=== PATIENT | male | born 1985 | race Two or more races ===

== ENCOUNTER 2020-04-19 07:53 | Emergency (ER) | payer OTHER, MEDICAID ==
[~2020-04-19] VITALS: Ht 165.1 cm; Wt 56.7 kg
[2020-04-19 08:10] VITALS: BP 132/74
--- NOTE | 2020-04-19 08:15 | Emergency Room Report ---
History of Present Illness General Chief Complaint: Flu Like Symptoms Source: Patient Present Illness HPI 34-year-old male no past medical history presents with subjective fever/chills, body aches, cough, congestion, no aggravating relieving factors severity is moderate, constant no chest pain no shortness of breath. 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 Patient History Past Medical History: see triage record Reviewed Nursing Documentation: PMH: Agreed; PSxH: Agreed Review of Systems All Other Systems: negative except mentioned in HPI Physical Exam Vital Signs Date Time Temp Pulse Resp B/P (MAP) Pulse Ox O2 Delivery O2 Flow Rate FiO2 04/19/20 08:04 99.0 95 20 132/74 (93) 95 Room Air Sp02 EP Interpretation: reviewed, normal General Appearance: well appearing, no apparent distress, alert Head: normocephalic, atraumatic Eyes: bilateral eye PERRL, bilateral eye EOMI ENT: uvula midline, moist mucus membranes, nasal congestion Neck: supple, thyroid normal, supple/symm/no masses Respiratory: lungs clear, no respiratory distress, no retraction, no accessory muscle use Cardiovascular #1: normal peripheral pulses, regular rate, rhythm, no edema, no gallop, no murmur Gastrointestinal: non tender, soft, no guarding, no rebound Musculoskeletal: normal inspection Neurologic: alert, oriented x3 Psychiatric: mood/affect normal Skin: no rash, warm/dry Medical Decision Making Diagnostic Impression: Primary Impression: Suspected 2019 novel coronavirus infection ER Course 34-year-old male presents with vague symptoms of cough congestion, subjective fever/chills patient may have a viral syndrome versus COVID versus URI patient instructed to socially isolate for 14 days work note was provided strict return precautions for shortness of breath were discussed follow-up with PCP Last Vital Signs Date Time Temp Pulse Resp B/P (MAP) Pulse Ox O2 Delivery O2 Flow Rate FiO2 04/19/20 08:04 99.0 95 20 132/74 (93) 95 Room Air Disposition: HOME, SELF-CARE Condition: Stable Scripts No Active Prescriptions or Reported Meds Referrals: [facility] Zoltan Pradeepalyssa Patel Cole. [facility] Departure Forms: Return to Work Return to Work Date: May 03, 2020 Patient Instructions: Upper Respiratory Infection, Adult, [id number] Additional Instructions: The patient was provided with discharge instructions, notified to follow-up with a primary care doctor and or specialist in the next 24-48 hours, and to return to the ED if they have worsening of their symptoms. Please note that this report is being documented using [employer] technology. This can lead to erroneous entry secondary to incorrect interpretation by the dictating instrument. Please socially isolate for 14 days Shekhar Hoang MD Apr 19, 2020 08:14
[2020-04-19 08:21] VITALS: BP 132/74
== END 2020-04-19 08:25 | disposition home or self-care (01) ==
LOC: EMR 08:25
DX: R50.9 Fever, unspecified (principal); R05 Cough; R06.02 Shortness of breath
CPT/HCPCS: 99281

== ENCOUNTER 2020-05-02 23:04 | Emergency (ER) | payer OTHER, MEDICAID ==
[~2020-05-02] VITALS: Ht 165.1 cm; Wt 56.7 kg
--- NOTE | 2020-05-02 23:27 | Emergency Room Report ---
History of Present Illness General Chief Complaint: Flu Like Symptoms Source: Patient Present Illness HPI There is a 34-year-old male with no significant past medical history. He did test positive for COVID on April 23. Since then he been complaining of intermittent shortness of breath. No fever or chills. His main complaint today is that he felt his heart beating fast. He also felt numbness and tingliness to his fingers. No nausea no vomiting. No chest pain. Cough is nonproductive nature. No exertional component. No diaphoresis. 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 COVID-19 Screening: Positive COVID-19 COVID-19 Testing Source: Outside source on april 23 Patient History Past Medical History: see triage record, old chart reviewed Past Surgical History: none Pertinent Family History: none Social History: Denies: smoking Immunizations: other Reviewed Nursing Documentation: PMH: Agreed; PSxH: Agreed Nursing Documentation-PMH Past Medical History: No Stated History Review of Systems Eye: Denies: eye pain, blurred vision ENT: Denies: ear pain, nose congestion, throat swelling Respiratory: Reports: cough, shortness of breath Cardiovascular: Reports: palpitations; Denies: chest pain Gastrointestinal: Denies: abdominal pain, diarrhea, nausea, vomiting Musculoskeletal: Denies: back pain, joint pain Skin: Denies: rash Neurological: Denies: headache, numbness Endocrine: Denies: increased thirst, increased urine Hematologic/Lymphatic: Denies: easy bruising All Other Systems: negative except mentioned in HPI Physical Exam Vital Signs Date Time Temp Pulse Resp B/P (MAP) Pulse Ox O2 Delivery O2 Flow Rate FiO2 05/02/20 23:09 97.9 97 16 109/69 (82) 97 Room Air Vitals normal Sp02 EP Interpretation: reviewed, normal General Appearance: well appearing, no apparent distress, alert Head: normocephalic, atraumatic Eyes: bilateral eye PERRL, bilateral eye EOMI ENT: hearing grossly normal, normal pharynx Neck: full range of motion, supple, no meningismus Respiratory: chest non-tender, lungs clear, normal breath sounds Cardiovascular #1: regular rate, rhythm, no murmur Gastrointestinal: normal bowel sounds, non tender, no mass, no organomegaly, no bruit, non-distended Musculoskeletal: back normal, normal range of motion, gait/station normal Psychiatric: mood/affect normal Medical Decision Making Diagnostic Impression: Primary Impression: Acute bronchitis due to COVID-19 virus Additional Impression: Palpitations ER Course Presents with palpitation and shortness of breath. Chest x-ray looks fine. EKG is normal. Will discharge home with reassurance. EKG Diagnostic Results Rate: normal Rhythm: NSR ST Segments: no acute changes Rhythm Strip Diag. Results EP Interpretation: yes Rate: 80 Rhythm: NSR, no PVC's, no ectopy Chest X-Ray Diagnostic Results Chest X-Ray Diagnostic Results : Chest X-Ray Ordered: Yes # of Views/Limited/Complete: 1 View Indication: Shortness of Breath EP Interpretation: Yes Interpretation: no consolidation, no effusion, no pneumothorax, no acute cardiopulmonary disease Impression: No acute disease Electronically Signed by: Ernesto Cedeño MD Last Vital Signs Date Time Temp Pulse Resp B/P (MAP) Pulse Ox O2 Delivery O2 Flow Rate FiO2 05/02/20 23:09 97.9 97 16 109/69 (82) 97 Room Air Status: improved Disposition: HOME, SELF-CARE Scripts Albuterol Sulfate (VENTOLIN HFA) 18 Gm Hfa.aer.ad 2 PUFFS INH EVERY 6 HOURS, #18 GM 0 Refills Prov: Ernesto Cedeño MD 05/02/20 Prednisone* (PREDNISONE*) 20 Mg Tablet 40 MG ORAL DAILY, #8 TAB Prov: Ernesto Cedeño MD 05/02/20 Referrals: NOT CHOSEN [facility]/,REFERRING (PCP) Additional Instructions: Follow-up with your doctor in 7 days. Return if symptoms worsen. Ernesto Cedeño MD May 02, 2020 23:26
[2020-05-02 23:38] VITALS: BP 109/69
[2020-05-02] MEDS ORDERED: VENTOLIN HFA18 GM INH (23:46)
[2020-05-02] MEDS ORDERED: PREDNISONE20 MG ORAL (23:46)
[2020-05-03 00:04] VITALS: BP 118/67
--- NOTE | 2020-05-03 13:59 | Diagnostic Imaging Report ---
Indication: Shortness of breath Technique: One view of the chest Comparison: none Findings: Lungs and pleural spaces are clear. Heart size is normal. Impression: No acute process
== END 2020-05-02 23:55 | disposition home or self-care (01) ==
LOC: EMR 23:23
DX: U07.1 COVID-19 (principal); J20.8 Acute bronchitis due to other specified organisms; R00.2 Palpitations
CPT/HCPCS: 71045; 93005; 99283; J7512

== ENCOUNTER 2020-08-13 03:41 | Emergency (ER) | payer OTHER, MEDICAID ==
[~2020-08-13] VITALS: Ht 165.1 cm; Wt 54.9 kg
[~2020-08-13 03:41] MED LIST: PREDNISONE20 MG ORAL; VENTOLIN HFA18 GM INH
[2020-08-13 04:11] VITALS: BP 131/71
--- NOTE | 2020-08-13 04:40 | Emergency Room Report ---
History of Present Illness General Chief Complaint: Chest Pain Source: Patient Present Illness HPI Is a 34-year-old male with no past medical history. He did have Covid infection in March. He presents with chief complaint of palpitation. Onset around 3 AM. It woke him up from sleep. He said his heart was beating fast. He has numbness to both fingers. He said that his heart is beating hard. Occasionally he gets these palpitation. He also complains of burning sensation in his chest. No nausea no vomiting. No diaphoresis. No shortness of breath. Better now. Denies any other complaint. Nothing made it better. Nothing made it worse. 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 COVID-19 Screening: Negative COVID-19 COVID-19 Testing Source: unk Patient History Past Medical History: see triage record, old chart reviewed Past Surgical History: none Pertinent Family History: none Social History: Denies: smoking Immunizations: other Reviewed Nursing Documentation: PMH: Agreed; PSxH: Agreed Nursing Documentation-PMH Past Medical History: No Stated History Review of Systems Eye: Denies: eye pain, blurred vision ENT: Denies: ear pain, nose congestion, throat swelling Respiratory: Denies: cough, shortness of breath Cardiovascular: Reports: palpitations; Denies: chest pain Gastrointestinal: Denies: abdominal pain, diarrhea, nausea, vomiting Musculoskeletal: Denies: back pain, joint pain Skin: Denies: rash Neurological: Denies: headache, numbness Endocrine: Denies: increased thirst, increased urine Hematologic/Lymphatic: Denies: easy bruising All Other Systems: negative except mentioned in HPI Physical Exam Vital Signs Date Time Temp Pulse Resp B/P (MAP) Pulse Ox O2 Delivery O2 Flow Rate FiO2 08/13/20 03:46 98.4 88 16 129/75 (93) 96 Room Air 08/13/20 04:09 99 Vitals normal Sp02 EP Interpretation: reviewed, normal General Appearance: well appearing, no apparent distress, alert Head: normocephalic, atraumatic Eyes: bilateral eye PERRL, bilateral eye EOMI ENT: hearing grossly normal, normal pharynx Neck: full range of motion, supple, no meningismus Respiratory: chest non-tender, lungs clear, normal breath sounds Cardiovascular #1: regular rate, rhythm, no murmur Gastrointestinal: normal bowel sounds, non tender, no mass, no organomegaly, no bruit, non-distended Musculoskeletal: back normal, normal range of motion, gait/station normal Psychiatric: mood/affect normal Medical Decision Making Diagnostic Impression: Primary Impression: Palpitations ER Course Patient presents with palpitation. He may have arrhythmia such as SVT or A. fib. At baseline now. Will discharge home. EKG Diagnostic Results Troponin ordered: No - Patient has palpitation. No chest pain. Symptom not consistent with ACS Rate: normal Rhythm: NSR ST Segments: no acute changes Rhythm Strip Diag. Results EP Interpretation: yes Rate: 77 Rhythm: NSR, no PVC's, no ectopy Last Vital Signs Date Time Temp Pulse Resp B/P (MAP) Pulse Ox O2 Delivery O2 Flow Rate FiO2 08/13/20 04:11 98.1 80 18 131/71 98 Room Air 08/13/20 04:09 99 Status: improved Disposition: HOME, SELF-CARE Condition: Stable Referrals: [facility],REFERRING (PCP) Additional Instructions: Follow-up with your doctor in a week. You may need referral to see a candy cutter hand for a Holter monitor. Return if worse. Ernesto Cedeño MD Aug 13, 2020 04:40
[2020-08-13 04:50] VITALS: BP 126/73
--- NOTE | 2020-08-13 12:04 | Cardiology Report ---
APPROVED REPORT EKG Measurement Heart [id number] <Conclusion> Normal sinus rhythm Possible Left atrial enlargement Borderline ECG
== END 2020-08-13 04:50 | disposition home or self-care (01) ==
LOC: EMR 04:00 → CANBEDREQ 04:06 → EMR 04:50
DX: R00.2 Palpitations (principal); Z86.19 Personal history of other infectious and parasitic diseases
CPT/HCPCS: 93005; 99283